=== PATIENT | male | born 1985 | race Caucasian/White ===

== ENCOUNTER 2017-05-18 18:48 | Emergency (ER) | payer OTHER ==
[2017-05-18 20:11] VITALS: BP 160/108
== END 2017-05-18 20:11 | disposition home or self-care (01) ==
LOC: ED 18:48
DX: S60.861A Insect bite (nonvenomous) of right wrist, initial encounter (principal); S60.461A Insect bite (nonvenomous) of left index finger, initial encounter; S40.861A Insect bite (nonvenomous) of right upper arm, initial encounter; L03.113 Cellulitis of right upper limb; T63.441A Toxic effect of venom of bees, accidental (unintentional), initial encounter; E11.9 Type 2 diabetes mellitus without complications; I10 Essential (primary) hypertension; Z88.0 Allergy status to penicillin; Z91.030 Bee allergy status; Z79.899 Other long term (current) drug therapy; Y93.89 Activity, other specified; Y92.89 Other specified places as the place of occurrence of the external cause; Y99.8 Other external cause status